=== PATIENT | female | born 1985 | race African-American/Black ===

== ENCOUNTER 2021-02-25 06:49 | Emergency (ER) | payer MEDICAID ==
[~2021-02-25] VITALS: Ht 170.2 cm; Wt 145.0 kg
[2021-02-25 08:49] VITALS: BP 150/78
== END 2021-02-25 08:50 | disposition home or self-care (01) ==
LOC: ER 06:49
DX: U07.1 COVID-19 (principal); Z88.3 Allergy status to other anti-infective agents; Z88.1 Allergy status to other antibiotic agents; Z88.6 Allergy status to analgesic agent; Z88.5 Allergy status to narcotic agent; Z88.2 Allergy status to sulfonamides; Z88.8 Allergy status to other drugs, medicaments and biological substances
CPT/HCPCS: 99283; C9803; U0003; U0005